=== PATIENT | male | born 1990 | race Caucasian/White ===

== ENCOUNTER 2025-08-03 19:52 | Emergency (ER) | payer BC, SELFPAY ==
[2025-08-03 20:09] VITALS: BP 147/84; PULSE 97; RESP 18; TEMP 37.1; O2SAT 98; BMI 35.6
--- OUTSIDE RECORDS SUMMARY | 2025-08-03 22:17 | XMS_ITS | Encounter Summary ---
Author Organization [facility] Address [address] [place] [phone] Phone Care Team Providers Care Rolled Seat Trimmer Name Role Phone Lisha Ross Primary Care Provider [phone] Encounter Details Date Type Department Care Team (Late st Contact Info) Description 05/09/2017 Conversion Encounter [facility] [place] [address] [place] [address] Social History Tobacco Use Types Packs/Day Years Used Date Smoking Tobacco: Never Assessed Sex and Gender Information Value Date Recorded Sex Assigned at Not on file Legal Sex Male 4:34 PM EDT Gender Identity Not on file Sexual Orientation Not on file documented as of this encounter Plan of Treatment Not on file documented as of this encounter Visit Diagnoses Not on filedocumented in this encounter Care Teams Rolled Seat Trimmer Relationship Specialty Start Date End Date Lisha Ross [address] [facility] [address] [place] [address] PCP - General 05/03/17 documented as of this encounter
--- OUTSIDE RECORDS SUMMARY | 2025-08-03 22:17 | XMS_ITS | Encounter Summary ---
Author Organization [facility] Address [address] [place] [phone] Phone Care Team Providers Care Breaking Machine Operator Name Role Phone Lisha Ross Primary Care Provider [phone] Encounter Details Date Type Department Care Team (Late st Contact Info) Description 01/10/2010 Documentation [facility] [place] [facility] [address] [place] [address] Family Medicine, Physician [address] [place], [place] [phone] Social History Tobacco Use Types Packs/Day Years [...] on filedocumented in this encounter Care Teams Breaking Machine Operator Relationship Specialty Start Date End Date Lisha Ross [address] [place] [id number] PCP - General 05/03/17 documented as of this encounter
--- OUTSIDE RECORDS SUMMARY | 2025-08-03 22:17 | XMS_ITS | Clinical Summary ---
Author Organization [facility] Address [address] [place] [address] Phone Care Team Providers Care Trouble Clerk Name Role Phone Lisha Ross Primary Care Provider [phone] Immunizations Immunization Administration Dates Next Due DTP 05/01/1993, 0,1988,1987,1988 Hep B, ped/adol 01/20/2001,09/22/2000,07/23/2000 Hib (PRP-T) 11/13/1989 MMR 08/08/2000,08/21/1989 OPV 05/01/1993, 0,1988,1987 Td (adult) (MBL), 2 Lf tetan us toxoid, PF, adsorbed 01/28/2006,08/08/2000 Family History Relation Name Status Comments Brother Alive Brother: Migrai chico / Lazy eye, Alive and well Father Alive Father: Alcohol ism Maternal Grandmother Alive Materna l grandmother: pulmonary embolus Mother Alive Mother: Alive a nd well Other Family history of Sudden /[place] under age 55, Family history of Asthma, Family history of Strabismus/amblyopia, Family history of Elevated cholesterol, Family history of Developmental dislocation of hip, Family history of Diabetes mellitus, Family history of Migraines, Family history of ADD/ADHD Paternal Grandmother Alive Paterna l grandmother: Asthma Social History Tobacco Use Types Packs/Day Years Used Date Smoking Tobacco: Never Assessed Sex and Gender Information Value Date Recorded Sex Assigned at Not on file Legal Sex Male 4:34 PM EDT Gender Identity Not on file Sexual Orientation Not on file Plan of Treatment Health Maintenance Due Date Last Done Comments Varicella Vaccines (1 of 2 - 13+ 2-dose series) 2001 DTaP,Tdap,and Td Vaccines (6 - Tdap) 01/29/2006 01/28/2006, 08/08/2000, 05/01/1993, Additional history exists HPV Vaccines (1 - 3-dose SCDM series) 2015 Influenza Vaccines (#1) 2025 COVID-19 Vaccine ( season) 2025 HIB Vaccines Completed 11/13/1989 IPV Vaccines Completed 05/01/1993, 10/25, 1988, Additional history exists MMR Vaccines Completed 08/08/2000, 08/21/1989 Hepatitis B Vaccines Completed 01/20/2001, 09/22/2000, 07/23/2000 Hepatitis A Vaccines Aged Out No long er eligible based on patient's age to complete this topic Men B Vaccine Aged Out No longer elig ible based on patient's age to complete this topic Meningococcal Vaccine Aged Out No richie barbara eligible based on patient's age to complete this topic Pneumococcal Vaccine Aged Out No long er eligible based on patient's age to complete this topic Care Teams Trouble Clerk Relationship Specialty Start Date End Date Lisha Ross [address] [place] [id number] PCP - General 05/03/17
--- NOTE | 2025-08-03 22:37 | ED.MEDCLEAR ---
HPI - Medical Clearance General Chief complaint: Medical Clearance Stated complaint: Medical Clearance Time Seen by Provider: 08/03/25 22:28 Source: patient, RN notes reviewed and old records reviewed Mode of arrival: ambulatory Limitations: no limitations History of Present Illness ED Provider: Kerrie GONSALVES Narrative: 35-year-old male presents for evaluation of medical clearance. He reports that he missed work last due to what he believes to be ?the flu. ? He states that he went to urgent care and had an EKG, chest x-ray and labs all of which was unremarkable. 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 or heavy lifting Related Information Allergies Allergy/AdvReac Type Severity Reaction Status Date / Time cat dander (cats) Allergy Anaphylaxis Verified 08/03/25 20:15 Review of Systems Constitutional: Constitutional: Denies body ache(s), Denies chills, Denies fever(s) and Denies headache(s) Eyes: Eyes: Denies blurry vision and Denies irritation ENT: Denies dizziness, Denies dry mouth and Denies headache(s) Cardiovascular: Cardiovascular: Denies chest pain and Denies dyspnea on exertion Respiratory: Respiratory: Denies cough and Denies dyspnea on exertion Gastrointestinal: Gastrointestinal: Denies abdominal pain and Denies loose stools Musculoskeletal: Musculoskeletal: Denies back pain Integumentary/Breasts: Skin/Breast: Denies rash Neurologic: Denies dizziness and Denies headache(s) PMFSH Social History Social History Advance Directives: No Advance Directives Information Provided: No Physical Exam Vital Signs: Vital Signs: Last Vital Signs Temp 98.7 F 08/03/25 22:44 Pulse 97 08/03/25 22:44 Resp 18 08/03/25 22:44 BP 147/84 H 08/03/25 22:44 Pulse Ox 98 08/03/25 22:44 O2 Del Method Room Air 08/03/25 22:44 BMI result Body Mass Index 35.6 Const: General: healthy appearing, comfortable, no acute distress, alert and awake Nutritional Appearance: well nourished Orientation/consciousness: patient oriented x3 HEENT: Head: Yes normocephalic and Yes atraumatic Throat: Yes posterior oropharynx normal Eyes: Eyelids: Yes eyelids normal Conjunctivae: conjunctivae normal Sclerae: sclerae normal Corneas: corneas normal Pupils: Equal, round and reactive pupils present EOM: EOMs intact bilaterally Neck: Neck: Yes full ROM Resp: Effort & Inspection: normal respiratory effort, able to speak in complete sentences, no audible wheezes and not labored Auscultation: clear to auscultation bilaterally Cardio: Rate: regular rate Rhythm: regular rhythm GI: Inspection: No distended Palpation (GI): Soft to palpation, not firm, nontender, no guarding and not rigid Skin: General skin exam: no rashes or lesions noted and elasticity normal Neuro: General: patient oriented x3 Cranial nerves: Yes Equal, round and reactive pupils present and Yes Bilaterally intact EOM present Cognition (Neuro): normal cognition Medical Decision Making Medical Decision Making MDM Narrative: 35-year-old male who denies any past medical history presents for evaluation of medical clearance. He reports feeling back to his baseline, he denies any fevers, chills, cough, chest pain abdominal pain, nausea vomiting. His vital signs are stable, he has not unremarkable exam, he will be cleared to return to work starting tomorrow Differential Diagnosis Differential Diagnoses: The differential diagnosis associated with the presentation includes Wellness exam Viral illness Pneumonia Bronchitis Discharge Plan Discharge Clinical Impression: Wellness examination Patient Disposition: Home, Self-Care Instructions: Normal Exam (ED) Additional Instructions: You were seen in the ER today and are medically cleared to resume normal activities at work Follow up with your primary doctor, return for new or worsening symptoms Stand Alone Forms: Work/School Release Interventions: ED Discharge Assessment Last Done: 08/03/25 22:44 Discharge Date/Time: 08/03/25 22:45 Print Language: Azerbaijani
[2025-08-03 22:44] VITALS: BP 147/84; PULSE 97; RESP 18; TEMP 37.1; O2SAT 98
== END 2025-08-03 22:45 | disposition home or self-care (01) ==
PROVIDERS: Emergency Provider Emergency Medicine; PCP Nurse Practitioner Family
DX: Z03.89 Encounter for observation for other suspected diseases and conditions ruled out (principal)
CPT/HCPCS: 99282

== ENCOUNTER 2025-08-25 15:49 | Emergency (ER) | payer BC, SELFPAY ==
[2025-08-25 16:13] VITALS: BP 152/80; PULSE 85; RESP 20; TEMP 36.4; O2SAT 97; BMI 36.9
--- NOTE | 2025-08-25 16:25 | ED_ITS ---
HPI - General Adult General Chief complaint: Recheck/Abnormal Lab/Rx Stated complaint: anemia, ?stomach ulcer Time Seen by Provider: 08/25/25 19:28 History of Present Illness ED Provider: Rayray Dunne MD HPI narrative: 35-year-old male reports being sent here by PCP george Yanelis after outpatient lab work showed iron-deficiency anemia. Patient reports several months of intermittent rectal bleeding back in March he reported a large blood clot had 1 point, more recently up until a few weeks ago he had dark stool he said this is resolved. Sometimes gets upper abdominal pain. No prior anemia, ulcer no prior upper or lower endoscopy done. He is unsure what his previous lab work shows but he thinks 2 years ago he had ?no iron-deficiency ?. No lab work provided from outpatient setting. __ I later clarified he has been using naproxen with relative frequency due to what he describes as restless leg clear unclear how often he is using this Related Data Previous Rx's ?Medication ?Instructions ?Recorded ferrous sulfate 325 mg (65 mg 325 mg PO BID #20 tabs 1 10/26/24 iron) tablet (Iron (ferrous sulfate)) omeprazole 20 mg capsule,delayed 20 mg PO DAILY 30 day s #30 caps 08/25/25 release Allergies Allergy/AdvReac Type Severity Reaction Status Date / Time cat dander (cats) Allergy Anaphylaxis Verified 08/25/25 16:16 [facility] Social History Social History Alcohol intake: never Smoked in Last 30 Days: No Use of substances other than those prescribed or required for medical reasons: No Any prior treatment program specific to substance use: No Advance Directives: No Advance Directives Information Provided: Yes Do you have a plan to hurt others: No Plan Physical Exam ED Exam Exam: EXAM: Gen: Alert, awake, well appearing, well hydrated. Appears slightly pale Head: Atraumatic Eyes: Anicteric, mildly pale conjunctiva ENT: Moist mucosa, no pallor. ? Neck: Supple. Skin: ?No observable rash or bruising on exposed or examined skin Respiratory: Breathing comfortably, No distress.Clear to auscultation bilaterally, symmetric chest expansion, No wheeze, rales, ronchi. Cardiovascular: Regular rate and rhythm. No murmurs or rub. Well perfused periphery, warm extremities. No edema. ? Abdominal: No focal tenderness. Soft, no objective distension. No palpable masses or obvious organomegaly. ?No guarding, no rebound tenderness or other peritoneal findings. JAMES with stool sample performed by himself on guaiac card: : No flank tenderness. Neuro: Alert. Gross movement of all extremities intact. ? Psych: Calm. Cooperative. MSK: No grossly visible deformity. Vital signs: See flowsheet Vital Signs: Vital Signs - 24 hr 08/25/25 16:13 08/25/25 19:32 08/25/25 21:30 Temperature 97.6 F 98.4 F 97.7 F Pulse Rate 85 74 85 Respiratory Rate 20 16 17 Blood Pressure 152/80 H 127/75 130/82 Pulse Oximetry 97 99 Oxygen Delivery Method Room Air Room Air 08/25/25 21:45 Temperature 98 F Pulse Rate 92 Respiratory Rate 14 Blood Pressure 136/86 Pulse Oximetry Oxygen Delivery Method BMI result Body Mass Index 36.9 Course Course Course Narrative: RmE: 35 year male presents to ED for feeling weak skin pale and black stool. Labs drawn ordered Medications Administered Discontinued Medications Generic Name Dose Route Start Last Admin Trade Name Freq PRN Reason Stop Dose Admin Pantoprazole Sodium 40 mg 08/25/25 19:59 08/25/25 20:27 Pantoprazole Sodium 40 Mg/10 Ml Vial IVPUSH 08/25/25 20:00 40 mg ONCE ONE Administration Medical Decision Making Medical Decision Making MDM Narrative: Medical Decision Makin-year-old male with symptomatic anemia. Baseline [id number] hemoglobin, today 8.5. Outpatient lab studies show low iron, low ferritin. High TSH at 26 sounds like the outpatient PCP's managing hypothyroidism. He is symptomatic with exertional dyspnea. No hematochezia at this time. Plan for guaiac, GI discussion Preliminary Favored Differential Diagnosis: PUD, gastritis, hematologic disorder, hemolysis among additional considered etiologies Testing Interpreted Independently: ?Guaiac negative Radiology or Lab testing Results Reviewed: ?See below for details Consults: Outpatient PCP was called: Miki Hilario MD ultrasound applications specialist tells me labs yesterday. Hgb 8.1 Iron 14, TIBC 486 Ferritin 3. TSH 26 __ Theyre only comparison CBC was from 2017, Hgb then was 15. Independent Historians/External Chart Reviews: ?See below for details Social Determinants of Health Impacting MDM/Planning: ?See below for details Lab Data MDM Lab Attestation statement: I reviewed the patient's lab results. Initially no available outpatient lab comparisons additionally search in MP ages from [facility] does not show any labs from the last 5 years. We tried to call [facility] to see if they have access to previous lab work. At this time labs are consistent with microcytic anemia hemoglobin 8.5. He also has thrombocytosis 734. WBC 8.3 08/25/25 17:47 08/25/25 17:47 Labs: Lab Results 08/25/25 Range/Units 17:47 WBC 8.3 (4.8-10.8) X10*3/uL RBC 4.27 L (4.60-5.80) X10*6/uL Hgb 8.5 L (14.0-18.0) g/dl Hct 30.1 L (42.0-52.0) % MCV 70.5 L (80.0-98.0) fL MCH 19.9 L (27.0-33.0) pg MCHC 28.2 L (31.0-36.0) g/dl RDW 23.0 H (11.0-16.0) % Plt Count 734 H (160-400) X10*3/uL MPV 8.3 L (9.4-12.4) fL Immature Gran % (Auto) 1.2 H (0.0-0.4) % Neut % (Auto) 57.2 (45-73) % Lymph % (Auto) 26.5 (20-40) % [place] % (Auto) 7.7 (2-11) % Eos % (Auto) 4.7 H (0-4) % Baso % (Auto) 2.7 H (0-2) % Lymph # (Auto) 2.2 (1.2-4.9) X10*3/uL [place] # (Auto) 0.6 (0.1-1.2) X10*3/uL Eos # (Auto) 0.4 (0.0-0.4) X10*3/uL Baso # (Auto) 0.2 (0.0-0.2) X10*3/uL Abs Immat Gran (auto) 0.10 H (0.00-0.03) X10*3/uL Absolute Neuts (auto) 4.8 (2.0-8.3) x10*3/uL Absolute Nucleated RBC 0.070 H (0.0-0.012) X10*3/uL Nucleated RBC % (auto) 0.8 H (0.0-0.2) /100WBC Absolute Retic 0.077 (0.026-0.095) X10*6/uL Percent Retic 1.9 H (0.5-1.8) % Immature Retic Fraction 3.0 (2.3-13.4) % Retic Hgb Equivalent 13.5 L (30.0-35.0) pg PT 11.2 (11.2-13.5) SEC INR 0.9 (0.9-1.1) APTT 28.7 (26.7-34.1) SEC Sodium 142 (135-145) mmol/L Potassium 4.2 (3.3-5.1) mmol/L Chloride 108 (96-108) mmol/L Carbon Dioxide 26 (22-29) mmol/L Anion Gap 12 (12-20) BUN 17 H (9-16) mg/dL Creatinine 0.95 (0.5-1.4) mg/dL Estim Creat Clear Calc 124.1 Estimated GFR > 60 Random Glucose 87 (60-115) mg/dL Calcium 9.3 (8.4-10.2) mg/dL Iron 16 L (45-160) mcg/dL TIBC 467 H (228-428) mcg/dL % Saturation 3 L (15-50) % Unsat Iron Binding 451 ug/dL Total Bilirubin 0.2 (0.0-1.0) mg/dL AST 27 (5-37) U/L ALT 28 (0-40) U/L Alkaline Phosphatase 66 (39-117) U/L Total Protein 8.1 H (6.5-8.0) g/dL Albumin 5.0 (3.5-5.0) g/dL Blood Type A Negative Antibody Screen NEGATIVE Crossmatch See Detail Discharge Plan Discharge Clinical Impression: Hypochromic microcytic anemia, Essential thrombocytosis Patient Disposition: Home, Self-Care Instructions: Anemia (ED), Upper Endoscopy (DC) Additional Instructions: We have diagnosed you with anemia and give you 1 unit of red blood cells. Avoid NSAIDs such as naproxen or ibuprofen. Avoid alcohol . Take the antacid medications we have prescribed daily. Avoid fatty, spicy foods, mint, coffee tea, caffeine. Take the iron tablets these may turn your stool dark and give constipation see may want to take Colace or senna which are [id number] stool softener medications drink plenty of fluids Prescriptions: New ferrous sulfate [Iron (ferrous sulfate)] 325 mg (65 mg iron) tablet 325 mg PO BID Qty: 20 0RF omeprazole 20 mg capsule,delayed release(DR/EC) 20 mg PO DAILY 30 Days Qty: 30 0RF Referrals: [facility] [place] Gastroenterology Services [Provider Group, Gastroenterology] Referral Note: Inform them that GI was consulted while here in the emergency department we think you may have an intermittent GI bleed and needed outpatient follow up Interventions: ED Discharge Assessment Last Done: 08/25/25 23:31 Discharge Date/Time: 08/25/25 23:34 Print Language: Lao
[2025-08-25 17:54] LABS: MANUAL DIFF FLAG NO
[2025-08-25 17:56] LABS: Hematocrit 30.1 % (42.0-52.0); Hemoglobin 8.5 g/dl (14.0-18.0); Imm Gran Abs Auto 0.10 X10*3/uL (0.00-0.03); Imm Gran Pct Auto 1.2 % (0.0-0.4); Lymphocytes Absolute Auto 2.2 X10*3/uL (1.2-4.9); Mean Corpuscular HGB Conc 28.2 g/dl (31.0-36.0); Mean Corpuscular Hemoglobin 19.9 pg (27.0-33.0); Mean Corpuscular Volume 70.5 fL (80.0-98.0); NRBC Abs Auto 0.070 X10*3/uL (0.0-0.012); NRBC Pct Auto 0.8 /100WBC (0.0-0.2); Platelet Count 734 X10*3/uL (160-400); Red Blood Count 4.27 X10*6/uL (4.60-5.80); White Blood Count 8.3 X10*3/uL (4.8-10.8)
[2025-08-25 18:10] LABS: INTERNATIONAL NORM RATIO 0.9 (0.9-1.1); Prothrombin Time 11.2 SEC (11.2-13.5)
[2025-08-25 18:11] LABS: Alanine Aminotransferase 28 U/L (0-40); Albumin Level 5.0 g/dL (3.5-5.0); Alkaline Phosphatase 66 U/L (39-117); Anion Gap 12 (12-20); Aspartate Amino Transferase 27 U/L (5-37); Blood Urea Nitrogen 17 mg/dL (9-16); Calcium 9.3 mg/dL (8.4-10.2); Carbon Dioxide 26 mmol/L (22-29); Chloride 108 mmol/L (96-108); Creatinine Clr Calc Pharmacy 124.1; Estimated Glomerular Filt Rate > 60; Potassium 4.2 mmol/L (3.3-5.1); Sodium 142 mmol/L (135-145); Total Protein 8.1 g/dL (6.5-8.0)
[2025-08-25 18:12] LABS: Partial Thromboplastin Time 28.7 SEC (26.7-34.1)
[2025-08-25 19:32] VITALS: BP 127/75; PULSE 74; RESP 16; TEMP 36.9; O2SAT 99
--- OUTSIDE RECORDS SUMMARY | 2025-08-25 19:50 | XMS_ITS | Encounter Summary ---
Author Organization [facility] Address [address] [place] [phone] Phone Care Team Providers Care College Or University Department Head Name Role Phone Lisha Ross Primary Care Provider [phone] Encounter Details Date Type Department Care Team (Late st Contact Info) Description 01/10/2010 Documentation [facility] [place] [address] [place] [address] Family Medicine, Physician [address] [place], [place] [phone] Social History Tobacco Use Types Packs/Day Years [...] on filedocumented in this encounter Care Teams College Or [employer] Department Head Relationship Specialty Start Date End Date Lisha Ross [address] [place] [id number] PCP - General 05/03/17 documented as of this encounter
--- OUTSIDE RECORDS SUMMARY | 2025-08-25 19:50 | XMS_ITS | Encounter Summary ---
Author Organization [facility] Address [address] [place] [phone] Phone Care Team Providers Care Muck Boss Name Role Phone Lisha Ross Primary Care Provider [phone] Encounter Details Date Type Department Care Team (Late st Contact Info) Description 05/09/2017 Conversion Encounter [facility] [place] [address] [place] [address] Social History Tobacco Use Types Packs/Day Years [...] on filedocumented in this encounter Care Teams Muck Boss Relationship Specialty Start Date End Date Lisha Ross [address] [facility] [address] [place] [address] PCP - General 05/03/17 documented as of this encounter
--- OUTSIDE RECORDS SUMMARY | 2025-08-25 19:50 | XMS_ITS | Clinical Summary ---
Author Organization [facility] Address [address] [place] [address] Phone Care Team Providers Care Training And Development Coordinator Name Role Phone Lisha Ross Primary Care Provider [phone] Immunizations Immunization Administration Dates Next Due DTP [...] nd well Other Family history of Sudden /[place] under age 55, Family history of Asthma, [...] age to complete this topic Care Teams Training And Development Coordinator Relationship Specialty Start Date End Date Lisha Ross [address] [place] [id number] PCP - General 05/03/17
[2025-08-25 20:06] LABS: Iron 16 mcg/dL (45-160); Percent Iron Saturation 3 % (15-50); Total Iron Binding Capacity 467 mcg/dL (228-428); Unsaturated Iron Binding 451 ug/dL
[2025-08-25 20:40] LABS: Reticulocytes Absolute 0.077 X10*6/uL (0.026-0.095)
[2025-08-25 21:30] VITALS: BP 130/82; PULSE 85; RESP 17; TEMP 36.5
[2025-08-25 21:45] VITALS: BP 136/86; PULSE 92; RESP 14; TEMP 36.6
[2025-08-25 23:14] VITALS: BP 117/61; PULSE 93; RESP 15; TEMP 36.6
[2025-08-25 23:31] VITALS: BP 117/61; PULSE 93; RESP 15; TEMP 36.6; O2SAT 98
== END 2025-08-25 23:34 | disposition home or self-care (01) ==
PROVIDERS: Physician Assistant; Emergency Provider Emergency Medicine; PCP Nurse Practitioner Family
DX: D50.8 Other iron deficiency anemias (principal); D47.3 Essential (hemorrhagic) thrombocythemia; G25.81 Restless legs syndrome; Z79.899 Other long term (current) drug therapy
CPT/HCPCS: 36415; 36430; 80053; 83540; 85025; 85045; 85610; 85730; 86850; 86900; 86901; 86923; 96374; 99284; 99285; J2470; P9016